=== PATIENT | male | born 1990 | race Caucasian/White ===

== ENCOUNTER 2017-06-12 17:41 | Emergency (ER) | payer OTHER ==
[~2017-06-12] VITALS: Ht 180.3 cm; Wt 113.6 kg
[~2017-06-12 17:41] MED LIST: BENCRE3 TOP; HYDR5CR TOP; INVE234I IM; INVE6TAB3 PO; LITH300C PO; PROZ20CA OR; PROZ20CA11 PO; REME15TA PO; TRAZ150T OR; TRAZ50TA11 PO
[2017-06-12 21:28] VITALS: BP 169/83
[2017-06-12] MEDS ORDERED: CLIN150C14 PO (21:38)
[2017-06-12] MEDS ORDERED: NORCOTAB PO (21:38)
[2017-06-12] MEDS ORDERED: CLINDAMYCIN 150 MG CAP PO ONE (21:45)
[2017-06-12] MEDS ORDERED: NORCO 5/325MG TABLET (BULK FOR ED) PO ONE (21:45)
--- NOTE | 2017-06-13 08:00 | REP ---
Clinical: Pain. Technique: AP, lateral, bilateral oblique and sunrise views of the left knee. Comparison: 04/02/2015. Findings: Lateral view best demonstrates a prominent tibial tuberosity with unfused apophyses and mild overlying soft tissue swelling suggesting [place]-Schlatter disease. No acute fracture dislocation. Very minimal tibiofemoral joint space narrowing cannot be excluded and should be correlated with physical examination. Remainder examination appears relatively normal for age. No effusion. Impression: Findings suggest sequelae of [place]-Schlatter disease. Minimal tibiofemoral joint space narrowing cannot be excluded. Signed by Sekou Mckinnon MD 06/13/2017 07:52 A
== END 2017-06-12 21:59 | disposition home or self-care (01) ==
LOC: M ED 17:41
DX: K08.89 Other specified disorders of teeth and supporting structures (principal); R68.84 Jaw pain; M93.962 Osteochondropathy, unspecified, left lower leg; S02.5XXA Fracture of tooth (traumatic), initial encounter for closed fracture; X58.XXXA Exposure to other specified factors, initial encounter; Y92.9 Unspecified place or not applicable; Y93.9 Activity, unspecified; Y99.9 Unspecified external cause status; Z86.19 Personal history of other infectious and parasitic diseases; F41.9 Anxiety disorder, unspecified; F32.9 Major depressive disorder, single episode, unspecified; F17.200 Nicotine dependence, unspecified, uncomplicated; Z88.8 Allergy status to other drugs, medicaments and biological substances; Z91.040 Latex allergy status

== ENCOUNTER 2017-06-14 15:47 | Emergency (ER) | payer OTHER ==
[~2017-06-14] VITALS: Ht 180.3 cm; Wt 97.7 kg
[~2017-06-14 15:47] MED LIST changes: +CLIN150C14 PO; +NORCOTAB PO
[2017-06-14 15:53] VITALS: BP 154/89
== END 2017-06-14 17:52 | disposition left against medical advice (07) ==
LOC: M ED 15:47
DX: K08.89 Other specified disorders of teeth and supporting structures (principal); K04.7 Periapical abscess without sinus; Z86.19 Personal history of other infectious and parasitic diseases; F17.200 Nicotine dependence, unspecified, uncomplicated; F11.10 Opioid abuse, uncomplicated; Z53.21 Procedure and treatment not carried out due to patient leaving prior to being seen by health care provider; Z91.040 Latex allergy status; Z88.8 Allergy status to other drugs, medicaments and biological substances

== ENCOUNTER 2017-08-27 23:44 | Emergency (ER) | payer OTHER | END 2017-08-28 01:52 | disposition left against medical advice (07) | LOC: M ED 23:44 | DX: Z53.21 Procedure and treatment not carried out due to patient leaving prior to being seen by health care provider (principal) ==

== ENCOUNTER → 2017-09-18 | Outpatient (REF) | payer MEDICAID, OTHER ==
[2017-09-18 12:48] LABS: BASO # 0.1 10^3/uL (0.0-0.2); BASO % 0.7 % (0.0-1.0); EOS # 0.8 10^3/uL (0.0-0.50); HEMATOCRIT 48.5 % (42.0-52.0); HEMOGLOBIN 17.5 g/dl (14.0-18.0); IMMATURE GRANULOCYTE % 0.5 % (0-3.0); LYMPH # 2.2 10^3/uL (1.5-6.5); LYMPH % 23.5 % (24.0-44.0); MEAN CORPUSCULAR HEMOGLOBIN 31.6 pg (27.0-33.0); MEAN CORPUSCULAR HGB CONC 36.1 g/dl (32.0-36.5); MEAN CORPUSCULAR VOLUME 87.7 fl (80.0-96.0); MONO # 0.7 10^3/uL (0.0-0.8); MONO % 7.5 % (0.0-5.0); NEUTROPHILS # 5.7 10^3/uL (1.8-7.7); NEUTROPHILS % 59.8 % (36.0-66.0); PLATELET COUNT, AUTOMATED 232 10^3/uL (150-450); RED BLOOD COUNT 5.53 10^6/uL (4.30-6.10); RED CELL DISTRIBUTION WIDTH 11.6 % (11.5-14.5); WHITE BLOOD COUNT 9.6 10^3/uL (4.0-10.0)
[2017-09-18 13:09] LABS: ALBUMIN 4.3 GM/DL (3.2-5.2); ALBUMIN/GLOBULIN RATIO 1.26 (1.00-1.93); ALKALINE PHOSPHATASE 73 U/L (45-117); ANION GAP 8 MEQ/L (8-16); AST/SGOT 60 U/L (7-37); BILIRUBIN,TOTAL 0.6 MG/DL (0.2-1.0); BLOOD UREA NITROGEN 13 MG/DL (7-18); CALCIUM LEVEL 9.1 MG/DL (8.5-10.1); CARBON DIOXIDE LEVEL 30 MEQ/L (21-32); CHLORIDE LEVEL 101 MEQ/L (98-107); CHOLESTEROL LEVEL 180 MG/DL (<200); CHOLESTEROL RISK RATIO 6.666 (<5); CREATININE FOR GFR 0.84 MG/DL (0.70-1.30); GLOMERULAR FILTRATION RATE > 60.0 (>60); GLUCOSE, FASTING 107 MG/DL (70-100); HDL CHOLESTEROL 27 MG/DL (>40); NON-HDL-C 153 MG/DL; SODIUM LEVEL 139 MEQ/L (136-145); TOTAL PROTEIN 7.7 GM/DL (6.4-8.2); TRIGLYCERIDES LEVEL 724 MG/DL (<150)
[2017-09-18 13:55] LABS: ALT/SGPT 98 U/L (12-78)
[2017-09-19 10:21] LABS: HEPATITIS B SURFACE ANTIBODY POSITIVE (POSITIVE)
[2017-09-19 10:50] LABS: HEPATITIS C VIRUS ABY INDEX > 11.0 INDEX (<0.8); HIV 1&2 SCREEN CENTAUR NEGATIVE (NEGATIVE)
[2017-09-22 00:06] LABS: HCV RNA NAA QUALITATIVE Positive (Negative)
== END ==
LOC: M LAB REF 12:17
DX: F19.11 Other psychoactive substance abuse, in remission (principal)
CPT/HCPCS: 84443

== ENCOUNTER → 2017-09-24 | Outpatient (REF) | payer OTHER, MEDICAID | LOC: M LAB REF 19:39 | DX: F19.11 Other psychoactive substance abuse, in remission (principal) | CPT/HCPCS: 80362 ==

== ENCOUNTER → 2017-10-01 | Outpatient (REF) | payer OTHER, MEDICAID ==
[2017-10-04 00:07] LABS: AMPHETAMINE SCREEN, URINE Negative ng/mL (Cutoff=1000); BARBITURATES SCREEN, URINE Negative ng/mL (Cutoff=200); BENZODIAZEPINES, URINE SCREEN Negative ng/mL (Cutoff=200); CANNABINOID SCREEN, URINE Negative ng/mL (Cutoff=20); COCAINE SCREEN, URINE Negative ng/mL (Cutoff=300); CREATININE, URINE 261.5 mg/dL (20.0-300.0); FENTANYL URINE SCREEN Negative pg/mL (Cutoff=2000); METHADONE, URINE SCREEN Negative ng/mL (Cutoff=300); OPIATE SCREEN, URINE Negative ng/mL (Cutoff=300); OXYCODONE, SCREEN, URINE Negative ng/mL (Cutoff=100); PCP SCREEN, URINE Negative ng/mL (Cutoff=25); pH, URINE 5.7 (4.5-8.9)
== END ==
LOC: M LAB REF 20:08
DX: F19.11 Other psychoactive substance abuse, in remission (principal)

== ENCOUNTER → 2017-10-02 | Outpatient (REF) | payer OTHER, MEDICAID | LOC: M LAB REF 18:46 | DX: F19.11 Other psychoactive substance abuse, in remission (principal); F11.20 Opioid dependence, uncomplicated | CPT/HCPCS: 80362 ==

== ENCOUNTER → 2017-10-08 | Outpatient (REF) | payer OTHER, MEDICAID | LOC: M LAB REF 16:31 | DX: F19.11 Other psychoactive substance abuse, in remission (principal) | CPT/HCPCS: 80362 ==

== ENCOUNTER → 2017-10-14 | Outpatient (REF) | payer OTHER, MEDICAID | LOC: M LAB REF 10:21 | DX: F19.11 Other psychoactive substance abuse, in remission (principal) ==

== ENCOUNTER 2017-10-20 14:18 | Emergency (ER) | payer OTHER, MEDICAID | END 2017-10-20 15:22 | disposition left against medical advice (07) | LOC: M ED 14:18 | DX: M54.2 Cervicalgia (principal); Z53.21 Procedure and treatment not carried out due to patient leaving prior to being seen by health care provider ==

== ENCOUNTER → 2017-10-22 | Outpatient (REF) | payer OTHER ==
[2017-10-28 00:07] LABS: AMPHETAMINE SCREEN, URINE Negative ng/mL (Cutoff=1000); BARBITURATES SCREEN, URINE Negative ng/mL (Cutoff=200); BENZODIAZEPINES, URINE SCREEN Negative ng/mL (Cutoff=200); CANNABINOID SCREEN, URINE Negative ng/mL (Cutoff=20); COCAINE SCREEN, URINE Negative ng/mL (Cutoff=300); FENTANYL URINE SCREEN Negative pg/mL (Cutoff=2000); METHADONE, URINE SCREEN Negative ng/mL (Cutoff=300); NALOXONE RESULT Negative (.); OPIATE SCREEN, URINE Negative ng/mL (Cutoff=300); OXYCODONE, SCREEN, URINE Negative ng/mL (Cutoff=100); PCP SCREEN, URINE Negative ng/mL (Cutoff=25); SPECIFIC GRAVITY, URINE 1.028 (.); URINE BUPRENORPHINE Negative ng/mL (Cutoff=10); pH, URINE 6.9 (4.5-8.9)
== END ==
LOC: M LAB REF 17:27
DX: F19.11 Other psychoactive substance abuse, in remission (principal)
CPT/HCPCS: 80362

== ENCOUNTER → 2017-11-12 | Outpatient (REF) | payer OTHER, MEDICAID | LOC: M LAB REF 18:48 | DX: F19.11 Other psychoactive substance abuse, in remission (principal) ==

== ENCOUNTER → 2017-11-26 | Outpatient (REF) | payer OTHER, MEDICAID ==
[2017-12-02 14:19] LABS: AMPHETAMINE SCREEN, URINE Negative ng/mL (Cutoff=1000); BARBITURATES SCREEN, URINE Negative ng/mL (Cutoff=200); BENZODIAZEPINES, URINE SCREEN Negative ng/mL (Cutoff=200); CANNABINOID SCREEN, URINE Negative ng/mL (Cutoff=20); COCAINE SCREEN, URINE Negative ng/mL (Cutoff=300); CREATININE, URINE 173.4 mg/dL (20.0-300.0); FENTANYL URINE SCREEN Negative pg/mL (Cutoff=2000); METHADONE, URINE SCREEN Negative ng/mL (Cutoff=300); NALOXONE RESULT Negative (.); OPIATE SCREEN, URINE Negative ng/mL (Cutoff=300); OXYCODONE, SCREEN, URINE Negative ng/mL (Cutoff=100); PCP SCREEN, URINE Negative ng/mL (Cutoff=25); SPECIFIC GRAVITY, URINE 1.025 (.); URINE BUPRENORPHINE Positive (.); URINE BUPRENORPHINE Positive (Cutoff=10); URINE BUPRENORPHINE See Final Results ng/mL (Cutoff=10); URINE BUPRENORPHINE CONFIRM 12 ng/mL (Cutoff=10); URINE NORBUPRENORPHINE Positive (.); URINE NORBUPRENORPHINE CONFIRM 34 ng/mL (Cutoff=10); pH, URINE 6.3 (4.5-8.9)
== END ==
LOC: M LAB REF 09:24
DX: F19.11 Other psychoactive substance abuse, in remission (principal)

== ENCOUNTER 2017-12-03 07:37 | Emergency (ER) | payer OTHER, MEDICAID ==
[2017-12-03] MEDS: METHOCARBAMOL 500 MG TAB PO (08:19)
[2017-12-03] MEDS: IBUPROFEN 800 MG TAB PO (08:20)
== END 2017-12-03 08:22 | disposition home or self-care (01) ==
LOC: M ED 07:37
DX: S39.012A Strain of muscle, fascia and tendon of lower back, initial encounter (principal); X58.XXXA Exposure to other specified factors, initial encounter; Y92.89 Other specified places as the place of occurrence of the external cause; I10 Essential (primary) hypertension; F32.9 Major depressive disorder, single episode, unspecified; B19.20 Unspecified viral hepatitis C without hepatic coma; F17.210 Nicotine dependence, cigarettes, uncomplicated; Z88.8 Allergy status to other drugs, medicaments and biological substances; Z91.040 Latex allergy status; Z79.899 Other long term (current) drug therapy
CPT/HCPCS: 99282

== ENCOUNTER → 2017-12-03 | Outpatient (REF) | payer OTHER, MEDICAID | LOC: M LAB REF 09:24 | DX: F19.11 Other psychoactive substance abuse, in remission (principal) ==

== ENCOUNTER → 2017-12-11 | Outpatient (REF) | payer OTHER, MEDICAID | LOC: M LAB REF 18:24 | DX: F19.11 Other psychoactive substance abuse, in remission (principal) | CPT/HCPCS: 80362 ==

== ENCOUNTER 2017-12-12 11:25 | Emergency (ER) | payer OTHER, MEDICAID ==
[2017-12-12 13:38] LABS: BASO % 0.6 % (0.0-1.0); EOS # 0.5 10^3/uL (0.0-0.50); EOS % 6.5 % (0.0-3.0); HEMATOCRIT 43.5 % (42.0-52.0); HEMOGLOBIN 15.4 g/dl (13.5-17.5); IMMATURE GRANULOCYTE % 0.4 % (0-3.0); LYMPH % 27.9 % (24.0-44.0); MEAN CORPUSCULAR HEMOGLOBIN 30.9 pg (27.0-33.0); MEAN CORPUSCULAR HGB CONC 35.4 g/dl (32.0-36.5); MEAN CORPUSCULAR VOLUME 87.3 fl (80.0-96.0); MONO # 0.5 10^3/uL (0.0-0.8); MONO % 7.6 % (0.0-5.0); NEUTROPHILS # 4.1 10^3/uL (1.8-7.7); PLATELET COUNT, AUTOMATED 264 10^3/uL (150-450); RED BLOOD COUNT 4.98 10^6/uL (4.30-6.10); WHITE BLOOD COUNT 7.1 10^3/uL (4.0-10.0)
[2017-12-12 14:01] LABS: ERYTHROCYTE SEDIMENTATION RATE 2 mm/hr (0-15)
[2017-12-12 14:05] LABS: ALBUMIN 4.2 GM/DL (3.2-5.2); ALBUMIN/GLOBULIN RATIO 1.31 (1.00-1.93); ALKALINE PHOSPHATASE 74 U/L (45-117); ALT/SGPT 118 U/L (12-78); ANION GAP 4 MEQ/L (8-16); AST/SGOT 60 U/L (7-37); BILIRUBIN,DIRECT 0.2 MG/DL (0.0-0.2); BILIRUBIN,TOTAL 0.7 MG/DL (0.2-1.0); BLOOD UREA NITROGEN 10 MG/DL (7-18); C REACTIVE PROTEIN QUANTITATIV < 0.30 MG/DL (0.00-0.30); CALCIUM LEVEL 8.9 MG/DL (8.5-10.1); CARBON DIOXIDE LEVEL 28 MEQ/L (21-32); CHLORIDE LEVEL 109 MEQ/L (98-107); GLOMERULAR FILTRATION RATE > 60.0 (>60); GLUCOSE, FASTING 94 MG/DL (70-100); RHEUMATOID FACTOR QUANT < 10.0 IU/ML (<15.0); SODIUM LEVEL 141 MEQ/L (136-145); TOTAL PROTEIN 7.4 GM/DL (6.4-8.2)
[2017-12-12 14:06] LABS: VITAMIN B12 LEVEL 499 PG/ML (247-911)
[2017-12-12 14:06] LABS: FOLATE 17.8 NG/ML (>5.4)
== END 2017-12-12 14:57 | disposition home or self-care (01) ==
LOC: M ED 11:25
DX: M79.641 Pain in right hand (principal); M79.642 Pain in left hand; Z86.19 Personal history of other infectious and parasitic diseases; F11.20 Opioid dependence, uncomplicated; Z72.0 Tobacco use; Z79.899 Other long term (current) drug therapy; Z88.8 Allergy status to other drugs, medicaments and biological substances; Z91.040 Latex allergy status
CPT/HCPCS: 82746

== ENCOUNTER 2017-12-13 02:17 | Emergency (ER) | payer OTHER ==
[2017-12-13 02:49] LABS: HEMATOCRIT 39.6 % (42.0-52.0); HEMOGLOBIN 14.1 g/dl (13.5-17.5); MEAN CORPUSCULAR HEMOGLOBIN 31.3 pg (27.0-33.0); MEAN CORPUSCULAR HGB CONC 35.6 g/dl (32.0-36.5); MEAN CORPUSCULAR VOLUME 87.8 fl (80.0-96.0); PLATELET COUNT, AUTOMATED 203 10^3/uL (150-450); RED BLOOD COUNT 4.51 10^6/uL (4.30-6.10); RED CELL DISTRIBUTION WIDTH 11.9 % (11.5-14.5); WHITE BLOOD COUNT 7.4 10^3/uL (4.0-10.0)
[2017-12-13 03:09] LABS: ACETAMINOPHEN LEVEL < 2.0 UG/ML (10.0-30.0); ALBUMIN 3.6 GM/DL (3.2-5.2); ALKALINE PHOSPHATASE 68 U/L (45-117); ANION GAP 8 MEQ/L (8-16); AST/SGOT 56 U/L (7-37); BILIRUBIN,DIRECT < 0.1 MG/DL (0.0-0.2); BLOOD UREA NITROGEN 14 MG/DL (7-18); CARBON DIOXIDE LEVEL 25 MEQ/L (21-32); CHLORIDE LEVEL 110 MEQ/L (98-107); CREATININE FOR GFR 0.83 MG/DL (0.70-1.30); GLOMERULAR FILTRATION RATE > 60.0 (>60); GLUCOSE, FASTING 137 MG/DL (70-100); POTASSIUM SERUM 3.7 MEQ/L (3.5-5.1); SALICYLATE LEVEL 2.2 MG/DL (5.0-30.0); SODIUM LEVEL 143 MEQ/L (136-145)
[2017-12-13 03:58] LABS: ALBUMIN/GLOBULIN RATIO 1.24 (1.00-1.93); ALT/SGPT 108 U/L (12-78); BILIRUBIN,TOTAL 0.2 MG/DL (0.2-1.0); ETHYL ALCOHOL (ETHANOL) 0.004 % (0.000-0.010); TOTAL PROTEIN 6.5 GM/DL (6.4-8.2)
[2017-12-13 04:58] LABS: AMPHETAMINES LEVEL URINE NEGATIVE (NEGATIVE); BARBITURATES URINE NEGATIVE (NEGATIVE); BENZODIAZEPINES URINE NEGATIVE (NEGATIVE); CANNABINOIDS URINE NEGATIVE (NEGATIVE); COCAINE METABOLITE URINE NEGATIVE (NEGATIVE); METHADONE URINE NEGATIVE (NEGATIVE); OPIATES URINE NEGATIVE (NEGATIVE); PHENCYCLIDINE URINE NEGATIVE (NEGATIVE)
== END 2017-12-13 06:11 | disposition home or self-care (01) ==
LOC: M ED 02:17
DX: F43.20 Adjustment disorder, unspecified (principal); I10 Essential (primary) hypertension; F17.200 Nicotine dependence, unspecified, uncomplicated; Z79.899 Other long term (current) drug therapy; Z91.040 Latex allergy status; Z88.8 Allergy status to other drugs, medicaments and biological substances
CPT/HCPCS: 80320

== ENCOUNTER → 2018-06-10 | Outpatient (REF) | payer OTHER, MEDICAID ==
[2018-06-10 19:00] LABS: BASO # 0.1 10^3/uL (0.0-0.2); BASO % 0.7 % (0.0-1.0); EOS # 0.6 10^3/uL (0.0-0.50); EOS % 7.4 % (0.0-3.0); HEMOGLOBIN 17.2 g/dl (13.5-17.5); IMMATURE GRANULOCYTE % 0.7 % (0-3.0); LYMPH # 2.5 10^3/uL (1.5-6.5); LYMPH % 30.6 % (24.0-44.0); MEAN CORPUSCULAR HEMOGLOBIN 31.4 pg (27.0-33.0); MEAN CORPUSCULAR HGB CONC 35.8 g/dl (32.0-36.5); MEAN CORPUSCULAR VOLUME 87.6 fl (80.0-96.0); MONO # 0.8 10^3/uL (0.0-0.8); MONO % 9.9 % (0.0-5.0); NEUTROPHILS # 4.1 10^3/uL (1.8-7.7); NEUTROPHILS % 50.7 % (36.0-66.0); PLATELET COUNT, AUTOMATED 231 10^3/uL (150-450); RED BLOOD COUNT 5.48 10^6/uL (4.30-6.10); RED CELL DISTRIBUTION WIDTH 11.9 % (11.5-14.5)
[2018-06-10 19:05] LABS: PROSTATIC SPECIFIC AG MONITOR 0.6 NG/ML (< 4.0)
[2018-06-10 19:13] LABS: TESTOSTERONE 1453 NG/DL (241-827)
== END ==
LOC: M LAB REF 18:34
DX: N52.9 Male erectile dysfunction, unspecified (principal)

== ENCOUNTER → 2018-08-31 | Outpatient (REF) | payer OTHER, MEDICAID ==
[~2018-08-31] MED LIST changes: -BENCRE3 TOP; +BENG1CRE3 TOP; +FLUO10TA2; +HYDR12CA; +HYDR50TA70; +IBUP80TA PO; +LISI20TA3 PO; +NAPR-50 PO; +ROBA500T PO; +SUBO8MIS; +TRAZ-160 PO; -TRAZ50TA11 PO
[2018-08-31 19:49] LABS: BASO # 0.1 10^3/uL (0.0-0.2); BASO % 0.7 % (0.0-1.0); EOS # 0.5 10^3/uL (0.0-0.50); EOS % 5.3 % (0.0-3.0); HEMATOCRIT 45.6 % (42.0-52.0); HEMOGLOBIN 16.4 g/dl (13.5-17.5); LYMPH # 2.6 10^3/uL (1.5-6.5); MEAN CORPUSCULAR HEMOGLOBIN 31.7 pg (27.0-33.0); MEAN CORPUSCULAR VOLUME 88.2 fl (80.0-96.0); MONO # 0.7 10^3/uL (0.0-0.8); MONO % 7.1 % (0.0-5.0); NEUTROPHILS # 5.9 10^3/uL (1.8-7.7); NEUTROPHILS % 60.5 % (36.0-66.0); PLATELET COUNT, AUTOMATED 274 10^3/uL (150-450); RED BLOOD COUNT 5.17 10^6/uL (4.30-6.10); WHITE BLOOD COUNT 9.8 10^3/uL (4.0-10.0)
[2018-08-31 19:55] LABS: ALBUMIN 4.4 GM/DL (3.2-5.2); ALT/SGPT 135 U/L (12-78); BILIRUBIN,TOTAL 0.5 MG/DL (0.2-1.0); BLOOD UREA NITROGEN 14 MG/DL (7-18); CARBON DIOXIDE LEVEL 23 MEQ/L (21-32); CHLORIDE LEVEL 108 MEQ/L (98-107); CHOLESTEROL LEVEL 188 MG/DL (<200); CHOLESTEROL RISK RATIO 5.081 (<5); CREATININE FOR GFR 0.74 MG/DL (0.70-1.30); GLOMERULAR FILTRATION RATE > 60.0 (>60); GLUCOSE, FASTING 88 MG/DL (70-100); HDL CHOLESTEROL 37 MG/DL (>40); LDL CHOLESTEROL 119 MG/DL (<100); NON-HDL-C 151 MG/DL; POTASSIUM SERUM 4.4 MEQ/L (3.5-5.1); SODIUM LEVEL 138 MEQ/L (136-145); TOTAL PROTEIN 7.6 GM/DL (6.4-8.2); TRIGLYCERIDES LEVEL 159 MG/DL (<150)
[2018-08-31 20:02] LABS: INR 0.97
[2018-08-31 20:14] LABS: HEPATITIS B SURFACE ANTIGEN NEGATIVE (NEGATIVE)
[2018-08-31 20:35] LABS: HEMOGLOBIN A1c 5.5 %
[2018-08-31 20:42] LABS: HIV 1&2 SCREEN CENTAUR NEGATIVE (NEGATIVE)
[2018-09-02 08:37] LABS: HEPATITIS B CORE ANTIBODY IGG Negative (Negative)
[2018-09-02 09:52] LABS: HEPATITIS B SURFACE ANTIBODY POSITIVE (POSITIVE)
== END ==
LOC: M LAB REF 19:05
PROVIDERS: ATTEND Nurse Practitioner Adult Health
DX: B18.2 Chronic viral hepatitis C (principal)

== ENCOUNTER 2018-10-21 07:45 | Emergency (ER) | payer OTHER ==
[~2018-10-21] VITALS: Ht 180.3 cm; Wt 134.5 kg
[~2018-10-21 07:45] MED LIST changes: +HYDR-3715 PO; -NAPR-50 PO; +NAPR-837 PO; -NORCOTAB PO
[2018-10-21] MEDS ORDERED: SUBO12MI (07:53)
[2018-10-21] MEDS ORDERED: AMLO10TA5 (07:53)
[2018-10-21] MEDS ORDERED: MAVY1TAB (07:53)
[2018-10-21] MEDS ORDERED: KETOROLAC 30 MG/ML VIAL (J1885) IV ONE (08:15)
[2018-10-21] MEDS ORDERED: KETOROLAC 60 MG/2 ML VIAL (J1885) IM ONE (08:30)
[2018-10-21 08:32] LABS: BASO # 0.1 10^3/uL (0.0-0.2); BASO % 0.9 % (0.0-1.0); EOS # 0.6 10^3/uL (0.0-0.50); HEMATOCRIT 43.1 % (42.0-52.0); HEMOGLOBIN 15.7 g/dl (13.5-17.5); LYMPH # 3.9 10^3/uL (1.5-6.5); LYMPH % 48.2 % (24.0-44.0); MEAN CORPUSCULAR HEMOGLOBIN 31.7 pg (27.0-33.0); MEAN CORPUSCULAR HGB CONC 36.4 g/dl (32.0-36.5); MEAN CORPUSCULAR VOLUME 86.9 fl (80.0-96.0); MONO # 0.7 10^3/uL (0.0-0.8); MONO % 8.3 % (0.0-5.0); NEUTROPHILS # 2.8 10^3/uL (1.8-7.7); NEUTROPHILS % 35.5 % (36.0-66.0); PLATELET COUNT, AUTOMATED 214 10^3/uL (150-450); RED BLOOD COUNT 4.96 10^6/uL (4.30-6.10)
[2018-10-21 08:51] LABS: ERYTHROCYTE SEDIMENTATION RATE 5 mm/hr (0-15)
--- NOTE | 2018-10-21 09:03 | REP ---
ORAL CHEST X-RAY: Single view. HISTORY: Chest pain. COMPARISON CHEST X-RAY: February 05, 2014. FINDINGS: The lungs are well inflated although somewhat less so than on the comparison study. No infiltrate is seen. Pleural angles are sharp. Cardiomediastinal silhouette is unremarkable. No bony abnormality is seen. EKG electrodes are noted. Pulmonary vasculature is not increased. IMPRESSION: Negative portable chest x-ray. Lesser level of inspiration than on the prior study. Electronically Signed by Alex Wilson MD 10/21/2018 03:50 P
[2018-10-21 09:09] LABS: ALT/SGPT 59 U/L (12-78); BILIRUBIN,DIRECT 0.1 MG/DL (0.0-0.2); BILIRUBIN,TOTAL 0.6 MG/DL (0.2-1.0); BLOOD UREA NITROGEN 13 MG/DL (7-18); CARBON DIOXIDE LEVEL 26 MEQ/L (21-32); CHLORIDE LEVEL 105 MEQ/L (98-107); CPK CREATINE PHOSPHOKINASE 139 U/L (39-308); CREATININE FOR GFR 0.82 MG/DL (0.70-1.30); GLOMERULAR FILTRATION RATE > 60.0 (>60); GLUCOSE, FASTING 104 MG/DL (70-100); MB/CK RELATIVE INDEX 0.94 (< OR =4); NT-PRO BNP 22 PG/ML (<125); POTASSIUM SERUM 3.9 MEQ/L (3.5-5.1); SODIUM LEVEL 138 MEQ/L (136-145); TOTAL PROTEIN 7.3 GM/DL (6.4-8.2); TROPONIN I < 0.02 NG/ML (< 0.10)
[2018-10-21 10:02] VITALS: BP 94/59
--- NOTE | 2018-10-22 10:12 | ECGEPIP ---
Stationary ECG Study [facility] - ED Test Date: 2018-10-21 Pat Name: ABHI KING Department: Room: - Gender: M [employer] Supervisor: EMILY : 1990 Requested By: Rylee Hull Order Number: [id number] Reading MD: Rylee Hull Measurements Intervals [place] Rate: 76 P: 48 MD: 157 QRS: 59 QRSD: 110 T: 27 QT: 359 QTc: 404 Interpretive Statements SINUS RHYTHM EARLY REPOLARIZATION RAD SIMILAR 03/21/14 Electronically Signed On 10-22-2018 10:12:20 EDT by Rylee Hull
== END 2018-10-21 10:09 | disposition home or self-care (01) ==
LOC: M ED 07:45
DX: R07.9 Chest pain, unspecified (principal); I10 Essential (primary) hypertension; F33.9 Major depressive disorder, recurrent, unspecified; B19.20 Unspecified viral hepatitis C without hepatic coma; Z79.899 Other long term (current) drug therapy; Z79.891 Long term (current) use of opiate analgesic; Z88.8 Allergy status to other drugs, medicaments and biological substances; Z91.040 Latex allergy status

== ENCOUNTER → 2018-11-17 | Outpatient (REF) | payer OTHER, MEDICAID ==
[~2018-11-17] MED LIST changes: +AMLO10TA5; +MAVY1TAB; +SUBO12MI
== END ==
LOC: M LAB REF 17:00
PROVIDERS: ATTEND Nurse Practitioner Adult Health
DX: B18.2 Chronic viral hepatitis C (principal)

== ENCOUNTER 2019-01-29 19:14 | Emergency (ER) | payer MEDICAID, OTHER ==
[~2019-01-29] VITALS: Ht 180.3 cm; Wt 125.0 kg
[~2019-01-29 19:14] MED LIST changes: -TRAZ-160 PO; +TRAZ-252 PO
[2019-01-29] MEDS ORDERED: NS 1,000 ML IV ONE (19:45)
[2019-01-29 20:20] LABS: BASO # 0.1 10^3/uL (0.0-0.2); BASO % 0.7 % (0.0-1.0); EOS # 0.4 10^3/uL (0.0-0.50); EOS % 5.8 % (0.0-3.0); HEMATOCRIT 40.5 % (42.0-52.0); LYMPH # 2.2 10^3/uL (1.5-6.5); LYMPH % 30.2 % (24.0-44.0); MEAN CORPUSCULAR HEMOGLOBIN 31.7 pg (27.0-33.0); MEAN CORPUSCULAR HGB CONC 34.6 g/dl (32.0-36.5); MEAN CORPUSCULAR VOLUME 91.6 fl (80.0-96.0); MONO # 0.6 10^3/uL (0.0-0.8); MONO % 8.6 % (0.0-5.0); NEUTROPHILS # 3.9 10^3/uL (1.8-7.7); NEUTROPHILS % 54.4 % (36.0-66.0); PLATELET COUNT, AUTOMATED 225 10^3/uL (150-450); RED BLOOD COUNT 4.42 10^6/uL (4.30-6.10); WHITE BLOOD COUNT 7.2 10^3/uL (4.0-10.0)
[2019-01-29 20:40] LABS: BLOOD UREA NITROGEN 13 MG/DL (7-18); CARBON DIOXIDE LEVEL 26 MEQ/L (21-32); CHLORIDE LEVEL 106 MEQ/L (98-107); CREATININE FOR GFR 0.98 MG/DL (0.70-1.30); GLOMERULAR FILTRATION RATE > 60.0 (>60); GLUCOSE, FASTING 89 MG/DL (70-100); POTASSIUM SERUM 5.2 MEQ/L (3.5-5.1); SODIUM LEVEL 138 MEQ/L (136-145)
[2019-01-29 20:47] LABS: APPEARANCE, URINE CLEAR (CLEAR); BACTERIA, URINE AUTO NEGATIVE (NEGATIVE); BILIRUBIN, URINE AUTO NEGATIVE (NEGATIVE); BLOOD, URINE BLOOD 2+ (NEGATIVE); COLOR, URINE YELLOW (YELLOW); GLUCOSE, URINE (UA) AUTO NEGATIVE (NEGATIVE); KETONE, URINE AUTO NEGATIVE (NEGATIVE); LEUKOCYTE ESTERASE, URINE AUTO NEGATIVE (NEGATIVE); MUCUS, URINE SMALL (NEGATIVE); NITRITE, URINE AUTO NEGATIVE (NEGATIVE); PROTEIN, URINE AUTO NEGATIVE (NEGATIVE); RBC, URINE AUTO 26 /HPF (0-3); SPECIFIC GRAVITY URINE AUTO 1.009 (1.002-1.035); SQUAMOUS EPITHELIAL CELL UR AU 0 /HPF (0-6); UROBILINOGEN, URINE AUTO 0.2 mg/dL (0.0-2.0); WBC, URINE AUTO 0 /HPF (0-3)
--- NOTE | 2019-01-29 21:43 | REPVR ---
EXAM: CT Abdomen and Pelvis Without Contrast EXAM DATE/TIME: 01/29/2019 8:51 PM CLINICAL HISTORY: 28 years old, male; Abdominal pain; Flank; Left; Additional info: Left flank pain, ua shows blood TECHNIQUE: Imaging protocol: Axial computed tomography images of the abdomen and pelvis without contrast. Coronal and sagittal reformatted images were created and reviewed. Radiation optimization: All CT scans at this facility use at least one of these dose optimization techniques: automated exposure control; mA and/or kV adjustment per patient size (includes targeted exams where dose is matched to clinical indication); or iterative reconstruction. COMPARISON: No relevant prior studies available. FINDINGS: Lung bases are clear. No pleural or pericardial effusion. Within the limits of unenhanced examination, the liver spleen, pancreas and adrenals are grossly normal. Gallbladder is normally distended with no evidence of calcified gallstones. Kidneys are grossly normal in size, contour and axis. There are no focal renal abnormalities. There is mild, asymmetric distention of the left intrarenal collecting system and left ureter. This is due to what was a partially obstructing urolith at the left ureterovesical junction measuring up to 3.5 mm (image #[id number]). There is no evidence of right ureterolithiasis or obstructive uropathy. Small and large bowel loops are grossly normal. No evidence of enteric obstruction or appendicitis. Pelvic organs are grossly normal. No significant free fluid in the abdomen or pelvis. IMPRESSION: Mild asymmetric distention of the left intrarenal collecting system and left ureter. This is due to at least a partially obstructing urolith at the extreme lip of the left ureterovesical junction versus a recently passed urolith in the urinary bladder lumen. This measures up to 3.5 mm. Correlation with resolution of left-sided symptoms is recommended. No other acute intra-abdominal or pelvic process. No evidence of right obstructive uropathy, enteric obstruction or appendicitis. Electronically signed by: Jere Cannon On 01/29/2019 21:43:16 PM
[2019-01-29] MEDS ORDERED: FLOM0.4C39 PO (22:45)
[2019-01-29] MEDS ORDERED: KEFL500C17 PO (22:45)
[2019-01-29] MEDS ORDERED: KETO10TAB PO (22:45)
[2019-01-29 22:58] VITALS: BP 142/97
[2019-01-29] MEDS ORDERED: CEPHALEXIN 500 MG CAP PO ONE (23:00)
[2019-01-29] MEDS ORDERED: TAMSULOSIN 0.4 MG CAP PO ONE (23:00)
== END 2019-01-29 22:59 | disposition home or self-care (01) ==
LOC: M ED 19:14
DX: N20.1 Calculus of ureter (principal); I10 Essential (primary) hypertension; F11.10 Opioid abuse, uncomplicated; Z91.040 Latex allergy status; Z88.8 Allergy status to other drugs, medicaments and biological substances; Z79.899 Other long term (current) drug therapy

== ENCOUNTER → 2019-02-03 | Outpatient (REF) | payer OTHER ==
[~2019-02-03] MED LIST changes: +FLOM0.4C39 PO; +KEFL500C17 PO; +KETO10TAB PO
[2019-02-05 14:09] LABS: HEPATITIS C QUANTITATION HCV Not Detected IU/mL (.)
== END ==
LOC: M LAB REF 12:39
PROVIDERS: ATTEND Nurse Practitioner Adult Health
DX: B18.2 Chronic viral hepatitis C (principal)

== ENCOUNTER 2019-04-12 10:14 | Emergency (ER) | payer OTHER ==
[~2019-04-12] VITALS: Ht 182.9 cm; Wt 122.7 kg
[~2019-04-12 10:14] MED LIST changes: +LISI20TA20 PO; -LISI20TA3 PO
--- NOTE | 2019-04-12 12:45 | REP ---
CT THORACIC SPINE: CT thoracic spine performed in the axial plane with sagittal and coronal reconstruction images. There is no evidence of fracture or dislocation. Vertebral arteries are normal in height and are well-aligned with normal thoracic kyphosis. There is minimal scattered disc space narrowing diffusely. Spinal canal appears adequate. IMPRESSION: No acute fracture or dislocation. Electronically Signed by Ashutosh Love MD 04/12/2019 04:19 P
--- NOTE | 2019-04-12 12:47 | REP ---
CT LUMBAR SPINE: Axial CT lumbar spine performed with sagittal and coronal reconstruction images. There is no compression fracture. There is normal lumbar lordosis and alignment. There are Schmorl's nodes along the superior endplates of L3 and L4. Disc spaces are relatively well-preserved. Spinal canal appears adequate. IMPRESSION: No acute fracture or dislocation. Electronically Signed by Ashutosh Love MD 04/12/2019 04:19 P
[2019-04-12 13:37] VITALS: BP 131/97
--- NOTE | 2019-04-12 13:41 | REP ---
CHEST, TWO VIEWS: There is no evidence of acute infiltrate. No pleural effusion is seen. The heart is normal in size. The mediastinal silhouette is unremarkable. The visualized osseous structures are intact. IMPRESSION: No acute pulmonary disease. Electronically Signed by Ashutosh Love MD 04/12/2019 04:21 P
== END 2019-04-12 13:41 | disposition home or self-care (01) ==
LOC: M ED 10:14
DX: S29.011A Strain of muscle and tendon of front wall of thorax, initial encounter (principal); S29.012A Strain of muscle and tendon of back wall of thorax, initial encounter; V49.59XA Passenger injured in collision with other motor vehicles in traffic accident, initial encounter; Y92.410 Unspecified street and highway as the place of occurrence of the external cause; Z88.8 Allergy status to other drugs, medicaments and biological substances; Z91.040 Latex allergy status; F17.210 Nicotine dependence, cigarettes, uncomplicated

== ENCOUNTER → 2020-05-01 | Outpatient (REF) | payer OTHER ==
[~2020-05-01] MED LIST changes: -AMLO10TA5; +AMLO1TAB25
[2020-05-01 13:28] LABS: BASO # 0.1 10^3/uL (0.0-0.2); BASO % 0.7 % (0.0-1.0); EOS # 0.6 10^3/uL (0.0-0.5); EOS % 7.2 % (0.0-3.0); HEMATOCRIT 44.1 % (42.0-52.0); HEMOGLOBIN 15.1 g/dl (13.5-17.5); LYMPH # 3.2 10^3/uL (1.5-5.0); LYMPH % 40.3 % (24.0-44.0); MEAN CORPUSCULAR HEMOGLOBIN 30.6 pg (27.0-33.0); MEAN CORPUSCULAR HGB CONC 34.2 g/dl (32.0-36.5); MEAN CORPUSCULAR VOLUME 89.3 fl (80.0-96.0); MONO # 0.5 10^3/uL (0.0-0.8); MONO % 6.2 % (0.0-5.0); NEUTROPHILS # 3.6 10^3/uL (1.5-8.5); NEUTROPHILS % 45.1 % (36.0-66.0); PLATELET COUNT, AUTOMATED 253 10^3/uL (150-450); RED BLOOD COUNT 4.94 10^6/uL (4.30-6.10)
[2020-05-01 13:37] LABS: ALBUMIN 4.2 GM/DL (3.2-5.2); ALT/SGPT 42 U/L (12-78); BILIRUBIN,TOTAL 0.4 MG/DL (0.2-1.0); BLOOD UREA NITROGEN 9 MG/DL (7-18); CALCIUM LEVEL 9.5 MG/DL (8.5-10.1); CARBON DIOXIDE LEVEL 29 MEQ/L (21-32); CHLORIDE LEVEL 107 MEQ/L (98-107); CHOLESTEROL LEVEL 186 MG/DL (<200); CHOLESTEROL RISK RATIO 5.166 (<5); FREE T4 1.15 NG/DL (0.76-1.46); GLOMERULAR FILTRATION RATE > 60.0 (>60); GLUCOSE, FASTING 94 MG/DL (70-100); HDL CHOLESTEROL 36 MG/DL (>40); LDL CHOLESTEROL 116 MG/DL (<100); NON-HDL-C 150 MG/DL; POTASSIUM SERUM 4.3 MEQ/L (3.5-5.1); SODIUM LEVEL 139 MEQ/L (136-145); TOTAL PROTEIN 7.5 GM/DL (6.4-8.2); TRIGLYCERIDES LEVEL 171 MG/DL (<150)
[2020-05-01 13:52] LABS: TOTAL 25(OH) VITAMIN D 28.7 NG/ML (30.0-100.0)
== END ==
LOC: M LAB REF 12:15
PROVIDERS: ATTEND Physician Assistant
DX: Z23 Encounter for immunization (principal); Z00.00 Encounter for general adult medical examination without abnormal findings; R61 Generalized hyperhidrosis; F17.200 Nicotine dependence, unspecified, uncomplicated; F11.11 Opioid abuse, in remission; B18.2 Chronic viral hepatitis C; F17.210 Nicotine dependence, cigarettes, uncomplicated; I10 Essential (primary) hypertension

== ENCOUNTER 2021-02-17 08:57 | Emergency (ER) | payer OTHER ==
[~2021-02-17] VITALS: Ht 180.3 cm; Wt 127.3 kg
[~2021-02-17 08:57] MED LIST changes: -CLIN150C14 PO; +CLIN150C15 PO; +MIRT-62 PO; -REME15TA PO
[2021-02-17 08:58] VITALS: BP 147/70
[2021-02-17] MEDS ORDERED: IBUPROFEN 600MG TAB PO ONE (09:10)
[2021-02-17] MEDS ORDERED: ACETAMINOPHEN 325 MG TAB PO ONE (09:10)
[2021-02-17] MEDS ORDERED: SKEL800T97 PO (09:45)
[2021-02-17] MEDS ORDERED: IBUP-1022 PO (09:46)
[2021-02-17] MEDS ORDERED: CYCLOBENZAPRINE 5MG TABLET PO ONE (09:50)
== END 2021-02-17 09:59 | disposition home or self-care (01) ==
LOC: M ED 08:57
DX: M62.830 Muscle spasm of back (principal); I10 Essential (primary) hypertension; B18.2 Chronic viral hepatitis C; F17.200 Nicotine dependence, unspecified, uncomplicated; Z91.040 Latex allergy status; Z88.8 Allergy status to other drugs, medicaments and biological substances

== ENCOUNTER 2021-12-18 20:29 | Emergency (ER) | payer OTHER ==
[~2021-12-18] VITALS: Ht 182.9 cm; Wt 110.0 kg
[~2021-12-18 20:29] MED LIST changes: -CLIN150C15 PO; +CLIN150C17 PO; +IBUP-1022 PO; -LISI20TA20 PO; +LISI20TA37 PO; +SKEL800T97 PO
[2021-12-18] MEDS ORDERED: ACETAMINOPHEN 500 MG TAB PO ONE (20:40)
[2021-12-19] MEDS ORDERED: ONDA4TAB6 PO ×2 (00:39→00:42)
[2021-12-19] MEDS ORDERED: NAPR-837 PO ×2 (00:39→00:42)
[2021-12-19] MEDS ORDERED: diphenhydrAMINE 25MG CAP PO ONE (00:40)
[2021-12-19] MEDS ORDERED: KETOROLAC 60MG 2ML VIAL IM ONE (00:40)
[2021-12-19] MEDS ORDERED: METOCLOPRAMIDE 10MG TAB PO ONE (00:40)
[2021-12-19] MEDS ORDERED: NIRM1TAB PO (00:42)
[2021-12-19 01:01] VITALS: BP 135/68
== END 2021-12-19 01:15 | disposition home or self-care (01) ==
LOC: M ED 20:29
DX: U07.1 COVID-19 (principal); R53.83 Other fatigue; I10 Essential (primary) hypertension; B18.2 Chronic viral hepatitis C; F11.10 Opioid abuse, uncomplicated; Z79.899 Other long term (current) drug therapy; Z91.040 Latex allergy status; Z88.8 Allergy status to other drugs, medicaments and biological substances
CPT/HCPCS: 87486; 87581; 87633; 87798; 96372; 99283; J1885